=== PATIENT | female | born 1985 | race African-American/Black ===

== ENCOUNTER 2017-10-16 20:07 | Emergency (ER) | payer OTHER ==
[~2017-10-16] VITALS: Ht 157.5 cm; Wt 77.1 kg
[~2017-10-16 20:07] MED LIST: KEFLEX500 MG PO; NORCO 5-325 TA1 EACH PO
[2017-10-16 21:39] LABS: ABSOLUTE NEUTROPHILS 7.2 thou/uL (1.4-8.2); BASOPHILS 0.4 % (0.0-2.0); EOSINOPHILS 1.7 % (0.0-3.0); HEMATOCRIT 36.2 % (37.0-47.0); HEMOGLOBIN 12.6 gm/dL (12.0-15.0); LYMPHOCYTES 6.9 % (24.0-44.0); MCH 31.2 pg (26.0-34.0); MCHC 34.8 g/dL (28.0-37.0); MCV 89.7 fL (80.0-100.0); PLATELET COUNT 208 thou/uL (150-400); RBC 4.04 mil/uL (4.20-5.00); RDW 13.8 % (10.5-14.5); WBC 8.7 thou/uL (4.0-11.0)
[2017-10-16 21:45] LABS: CALCIUM 8.9 mg/dL (8.5-10.1); POTASSIUM 3.5 mmol/L (3.5-5.1)
[2017-10-16 21:51] LABS: ALBUMIN 3.6 g/dL (3.4-5.0); TOTAL BILIRUBIN 0.3 mg/dL (<0.1-1.0)
[2017-10-16] MEDS ORDERED: OSELB75 PO (22:23)
== END 2017-10-16 22:53 | disposition home or self-care (01) ==
LOC: ER 20:07
PROVIDERS: Physician Assistant
DX: J11.1 Influenza due to unidentified influenza virus with other respiratory manifestations (principal); R51 Headache